=== PATIENT | male | born 1990 | race Hispanic/Latino ===

== ENCOUNTER 2016-10-21 15:25 | Emergency (ER) | payer OTHER ==
[~2016-10-21] VITALS: Ht 167.6 cm; Wt 77.3 kg
[~2016-10-21 15:25] MED LIST: BENZ1TAB7 PO; DIVA500T6 PO; HYDR50CA PO; LORA1TAB PO; RISP1TAB3 PO; [UNRECOGNIZED DRUG - OTHER] IM
[2016-10-21 15:28] VITALS: BP 112/76; PULSE 104; RESP 16; O2SAT 98
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
[2016-10-21] MEDS ORDERED: TdaP Vaccine 0.5 mL Inj IM ONE (15:45)
--- NOTE | 2016-10-21 16:26 | DRSVH ---
PROCEDURE: X-RAY LEFT ANKLE, MINIMUM THREE VIEWS ([id number]) INDICATIONS: trauma TECHNIQUE: 3 views of the ankle were acquired. COMPARISON: None. FINDINGS: Bones: No fractures or dislocations. Ankle mortise is normally aligned. No suspicious bony lesions . Soft tissues: No tibiotalar joint effusion. Achilles tendon appears normal. IMPRESSION: No fracture. No osseous lesion. If there are persistent symptoms or clinical suspicion f or pathology, then repeat radiographs or advanced imaging (CT, MRI or bone scan) should be considered for further evaluation. Dictated by: Maria Luisa Almazan MD, PhD on 10/21/2016 at 16:24 Approved by: Maria Luisa Almazan MD, PhD on 10/21/2016 at 16:25
--- NOTE | 2016-10-21 16:27 | DRSVH ---
PROCEDURE: X-RAY CHEST, TWO VIEWS ([id number]) INDICATIONS: trauma TECHNIQUE: 2 views of the chest were acquired. COMPARISON: None. FINDINGS: Surgical changes and devices: None. Lungs and pleura: No pleural effusions or pneumothorax. Lungs are clear. Mediastinum: Mediastinal contours are normal. Heart size is normal. Bones and chest wall: No suspicious bony abnormalities. Soft tissues appear unremarkable. IMPRESSION: No acute cardiopulmonary disease process. Dictated by: Maria Luisa Almazan MD, PhD on 10/21/2016 at 16:25 Approved by: Maria Luisa Almazan MD, PhD on 10/21/2016 at 16:26
--- NOTE | 2016-10-21 16:28 | DRSVH ---
PROCEDURE: X-RAY PELVIS, ONE OR TWO VIEWS ([id number]) INDICATIONS: trauma TECHNIQUE: 1 view(s) of the pelvis acquired. COMPARISON: None. FINDINGS: Bones: No fractures or dislocations. No suspicious bony lesions. Soft tissues: Visualized bowel gas pattern is normal. No suspicious soft tissue calcifications. IMPRESSION: No fracture. No osseous lesion. If there are persistent symptoms or clinical suspicion f or pathology, then repeat radiographs or advanced imaging (CT, MRI or bone scan) should be considered for further evaluation. Dictated by: Maria Luisa Almazan MD, PhD on 10/21/2016 at 16:26 Approved by: Maria Luisa Almazan MD, PhD on 10/21/2016 at 16:26
--- NOTE | 2016-10-21 16:29 | DRSVH ---
PROCEDURE: X-RAY LEFT TIBIA/FIBULA, TWO VIEWS ([id number]) INDICATIONS: trauma TECHNIQUE: 2 views of the tibia and fibula were acquired. COMPARISON: None. FINDINGS: Bones: No fractures or dislocations. No suspicious bony lesions. Soft tissues: No suspicious soft tissue calcifications or masses. IMPRESSION: No fracture. No osseous lesion. If there are persistent symptoms or clinical suspicion f or pathology, then repeat radiographs or advanced imaging (CT, MRI or bone scan) should be considered for further evaluation. Dictated by: Maria Luisa Almazan MD, PhD on 10/21/2016 at 16:27 Approved by: Maria Luisa Almazan MD, PhD on 10/21/2016 at 16:27
--- NOTE | 2016-10-21 16:30 | DRSVH ---
PROCEDURE: X-RAY LEFT FOOT COMPLETE, MINIMUM THREE VIEWS ([id number]) INDICATIONS: trauma TECHNIQUE: 3 views of the foot were acquired. COMPARISON: None. FINDINGS: Bones: No fractures or dislocations. No suspicious bony lesions. Soft tissues: No tibiotalar joint effusion. Achilles tendon appears normal. IMPRESSION: No fracture. No osseous lesion. If there are persistent symptoms or clinical suspicion f or pathology, then repeat radiographs or advanced imaging (CT, MRI or bone scan) should be considered for further evaluation. Dictated by: Maria Luisa Almazan MD, PhD on 10/21/2016 at 16:27 Approved by: Maria Luisa Almazan MD, PhD on 10/21/2016 at 16:28
[2016-10-21] MEDS ORDERED: HYDR-4003 PO (16:58)
[2016-10-21 17:47] VITALS: BP 109/76; PULSE 96; RESP 16; O2SAT 98
== END 2016-10-21 17:49 | disposition home or self-care (01) ==
LOC: SED 15:25
DX: S80.812A Abrasion, left lower leg, initial encounter (principal); M79.662 Pain in left lower leg; M54.5 Low back pain; V86.59XA Driver of other special all-terrain or other off-road motor vehicle injured in nontraffic accident, initial encounter; Y93.89 Activity, other specified; Y92.89 Other specified places as the place of occurrence of the external cause; Y99.8 Other external cause status; Z87.891 Personal history of nicotine dependence; Z88.8 Allergy status to other drugs, medicaments and biological substances; Z23 Encounter for immunization

== ENCOUNTER 2016-12-23 22:05 | Inpatient (IN) | payer MEDICAID, OTHER ==
[~2016-12-23] VITALS: Ht 165.1 cm; Wt 68.2 kg
[~2016-12-23 22:05] MED LIST changes: +HYDR-4003 PO
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
[2016-12-23 22:21] VITALS: BP 121/79; PULSE 110; RESP 16; O2SAT 98
[2016-12-24] MEDS ORDERED: LORazepam 2 mg Tablet PO ONE (03:30)
[2016-12-24] MEDS ORDERED: risperiDONE 1 mg Tablet PO ONE (03:30)
[2016-12-24 03:42] VITALS: BP 118/76; PULSE 95; RESP 16; O2SAT 97
[2016-12-24 06:30] VITALS: BP 128/68; PULSE 90; RESP 20; O2SAT 97
[2016-12-24 07:41] LABS: BASOPHILS % (AUTO) 0.4 % (0-3); EOSINOPHILS % (AUTO) 1.6 % (0-5); MONOCYTES % (AUTO) 9.4 % (4-12); Mean Corpuscular Hemoglobin 31.4 pg (27.0-35.0); Mean Corpuscular Volume 91.9 fL (81-100); NEUTROPHILS % (AUTO) 56.2 % (40-74); Platelet Count 203 bil/L (150-400)
[2016-12-24 12:34] VITALS: BP 121/79; PULSE 91; RESP 16; O2SAT 97
[2016-12-24 19:30] VITALS: BP 101/65; PULSE 88; RESP 20; O2SAT 100
[2016-12-24 20:22] VITALS: BP 101/65; PULSE 88; RESP 20; O2SAT 100
[2016-12-24 21:05] VITALS: BP 120/80; PULSE 98; RESP 16
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
[2016-12-24] MEDS ORDERED: Magnesium Hydroxide 10 mL Oral Concentration PO PRN (22:45)
[2016-12-24] MEDS ORDERED: Benzocaine-Menthol Lozenge 2/Pkg PO PRN (22:45)
[2016-12-24] MEDS ORDERED: Alum-Mag Hydrox-Simeth 30 mL Suspension PO PRN (22:45)
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
--- NOTE | 2016-12-25 02:24 | NUR ---
Admit/NOC OBS [id number] Pt arrived from ED at 2030. Signed paperwork and oriented to unit. Pt out on unit some throughout evening. Pt unable to follow conversation or activity for any length of time. Pt hyperaware of others and any movement, including during checks. Broken sleep after 130. Observed Q15 as ordered.
--- NOTE | 2016-12-25 07:02 | NUR ---
Nursing Note Alternative Medicine Practitioner 11pm to 7am Pt in bed at start of shift, appears to have slept through the night with restless sleep. Woke up at 0500, appeared restless and was seen pacing. Offered a prn and declined. Pt is disheveled, and seclusive to self. Monitored pt. with q 15 minute face checks for safety, location and accountability.
[2016-12-25 15:27] VITALS: BP 123/72; PULSE 109; RESP 17
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
--- NOTE | 2016-12-25 18:01 | NUR ---
Observations [id number] Pt awake in dining room socializing with peers upon start of shift. Pt observed talking amongst himself at times, restless, moving items on the unit. He attended breakfast, eating 100% and then slept most of the day. Pt woke prior to dinner, requesting a snack. He attended dinner eating 100%. Pt engaged with peers in dining area in the evening. He was observed every 15 minutes of shift as directed.
--- NOTE | 2016-12-25 21:50 | NUR ---
Nurses Note Evening Patient has remained in behavioral control,has been social with peers. His thoughts have been reality based although superficial. He accepted Depakote. His hygiene remains poor. Patient will be monitored on q 15min.checks for safety and support. Addendum: 12/25/16 at 2156 by BARBARA WAGONER RN Amended: Links added.
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
--- NOTE | 2016-12-26 04:21 | NUR ---
Nursing, NOC Patient walked to nurse's station @ , requesting juice, which was given. On the return to his room, he was observed airboxing and talking to himself. Approached nurse's station again about an hour later w/ request for snacks/juice. Reminded patient of designated snack/drink times as posted on the unit fridge. Patient appeared anxious at this time, declined offer of PRN Ativan, states "no, I dont want that, I have court in the morning and Ativan usually knocks me out for 12 hours straight." and "I have been doing push-ups in my room to tire out." Returned to room and fell asleep. Slept well thru the rest of the NOC. Q15 min safety/room checks thru NOC.
[2016-12-26 11:24] VITALS: BP 137/77; PULSE 85; RESP 19
--- NOTE | 2016-12-26 14:53 | NUR ---
Nursing Days Pt slept this morning until awoken to go to court. He did get up and present to court. His dress and appearance are disheveled with poor grooming. He isolates to his room the majority of the shift but he came out for meals and played Jenga with a male peer after lunch. He is taking medication as prescribed. No behavioral outbursts. Continue to monitor and support on the unit as needed.
--- NOTE | 2016-12-26 16:20 | NUR ---
[facility] Day Shift Pt maintained behavioral control throughout the shift. Pt affect appears mostly flat, somewhat brighter when engaged with peers. Pt spends most of the shift resting/sleeping in his room. Pt is appropriate with staff and peers when active on the unit. Pt engages in unit activities with peers in the AM. Pt did not attend breakfast. Pt attended lunch and ate approx 100% of meal.
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
--- NOTE | 2016-12-26 17:46 | NUR ---
home health care case manager/Counselor: S/O: Patient only slept 5.75 hours last night per staff. Patient denies S/I and H/I. He denies auditory and visual hallucinations. Depression is 4/10 and anxiety is 3/10 A: Patient is cooperative, restricted affect, suspicious, paranoid, guarded, limited insight, poor judgment. P: Follow care plan, coordinate with out-patient providers.
--- NOTE | 2016-12-27 05:53 | NUR ---
nursing, nights, 11-7 s- no i don't want anything. o- has appeared to sleep after 0130 to 0230 and after 5. assessed q 15 minutes. a- restless, inadequate sleep, no apparent distress. p- monitor behavior/emotional state, quality, times and amount of sleep, use and effect of medication. jenni
[2016-12-27 09:15] VITALS: BP 122/76; PULSE 89; RESP 16
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
--- NOTE | 2016-12-27 14:30 | NUR ---
Nursing Days Pt briefly out of his room this morning for breakfast and meds. The rest of the morning he exhibited avoidant behavior lying in his room wrapped in a blanket resting opening his eyes when being checked on by staff. He did not participate in morning community meeting. He did come out for lunch and afterward he watched part of a movie. He still appeared tired at this time heavily yawning. No behavior outburst. Polite upon interaction though minimally responsive to questions by staff. Disheveled appearance with poor grooming. No apparent distress or complaints made this shift. Continue to monitor mood, behavior and activity on the unit.
--- NOTE | 2016-12-27 18:10 | NUR ---
Observations [id number] Pt isolated to room much of the morning, sleeping. Pt attended lunch and dinner, eating 100%. Pt appears internally preoccupied and aloof. He spent time in the evening talking with peers and working on a puzzle. Pt also requested to listen to music as well. Pt did not attend group. He was observed every 15 minutes of shift as directed.
--- NOTE | 2016-12-27 19:02 | NUR ---
manager transport/Counselor: S/O: Patient slept 3.25 hours last night per staff. Patient denies S/I and H/I. He denies auditory and visual hallucinations. Depression is 4/10 and anxiety is 3/10. A: Patient is cooperative, restricted affect, dysthymic, guarded, suspicious, paranoid, limited insight, limited judgment. P: Follow care plan, coordinate with out-patient providers.
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
[2016-12-27] MEDS: LORazepam 1 mg Tablet PO PRN (21:07)
[2016-12-27] MEDS: risperiDONE 2 mg Tablet PO PRN (21:08)
--- NOTE | 2016-12-28 05:26 | NUR ---
nursing, nights, 11-7 s/o- has appeared to sleep after 0045 during q 15 minute assessments. a- no apparent distress. p- monitor behavior/emotional state, quality, times and amount of sleep, use and effect of medication. jenni
[2016-12-28 11:28] VITALS: BP 122/72; PULSE 90; RESP 16
--- NOTE | 2016-12-28 13:02 | NUR ---
Nursing Dayshift: S: "Do you think I will be here for the full 14 days or can I get out early?" O: Explained to patient it would depend on his progress on the unit. Has been in his room much of the shift. Out in the dining room for late meals after peers have finished. Approachable. Denies anxiety, harmful thoughts, and hallucinations. Depression "just because I'm in here. I could be home or at the beach." A: Isolative. Pleasant on approach. P: CPOC. Monitor mood and behavior. Encourage out of room activities.
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
--- NOTE | 2016-12-28 23:36 | NUR ---
Observations 1900 to 0700 Pt attended and participated in wrap up group. Pt ate a snack. Pt showered and watched a movie during free times. Pt appears internally preoccupied. Pt is friendly with staff and peers. Pt is moderately gleerful and displaying odd behavior. I want taco barr. Okay pizza hut I dont sleep at night. I dont like to. Pt is currently resting in bed. Staff completed 15 min close observations as ordered.
--- NOTE | 2016-12-29 06:11 | NUR ---
security shift manager [id number] Pt participated in wrap up group with peers and behaved appropriately. Pt did not have any HS meds and refused PRN when he appeared anxious. Pt in bed restless this shift tossing and turning without s/sx of distress noted. Slept 2.25hrs. Continue to monitor for mood changes, emotional wellbeing, and q15min checks for safety. Care continues.
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
[2016-12-29 15:20] VITALS: BP 126/86; PULSE 95; RESP 18
--- NOTE | 2016-12-29 18:10 | NUR ---
Observations 0700 - 1900 Pt affect and mood was friendly, preoccupied, paranoid and has limited insight. Pt was social with staff and peers. Pt was pleasant, polite and cooperative when approached. Pt maintained behavior throughout the shift. Pt speech and eye contact was ok. Pt ate snack. Pt attended meals in D.R. and ate 100% of his meals. Pt ate snack. Pt visited with family and it appeared to go well. Pt played ping pong with peers and seemed to enjoy this. Pt watched baseball game on TV. Pt was observed laughing to himself and responding to internal stimuli. Pt was observed every 15 minutes through the shift as ordered.
--- NOTE | 2016-12-30 06:27 | NUR ---
[id number] Nursing Note Sleep=6.75+ hrs sleep. S: "I am having problems-I don't know what it is called, not urination". "My mom called it #1 and #2". O: Patient visible on unit but not seen to be interacting much with peers. Polite when interacting with staff, cooperative. A: Bright, insight is poor, thoughts are disorganized. P: Monitor for safety and response to treatment. Follow plan of care.
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
--- NOTE | 2016-12-30 19:48 | NUR ---
[id number]. nurs. S/O: "Can I play ping pong " Pt out on unit around peers while watching TV but not actively seeking interaction , pt asking to get needs met with quiet pleasant manner, bright to neutral affect, enjoyed playing ping pong by self. Pt was able to not engage with a peer who was posturing in a provoking manner and avoided other inappropriate and conflictual situations. Mood even. Taking meds as prescribed. Feels that he is ready to go home. No overt response to internal stim noted. No c/o px s/es from meds. P:CNCP
--- NOTE | 2016-12-31 05:57 | NUR ---
bobbin stripper [id number] Pt participated in wrap up group and did not have any behavioral issues or outburst. Pt continues to sit quietly alone watching television and rarely interacting with peers. Pt has been sleeping on and off throughout the night with longest uninterrupted sleep stretch of 1 hr 30mins. Pt slept4 hrs broken. Continue to monitor for mood changes, emotional wellbeing, and q15min checks for safety. Care continues. Addendum: 12/31/16 at 0603 by OBED CHOU RN bobbin stripper [id number]
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
--- NOTE | 2016-12-31 15:01 | NUR ---
Nursing 7a-3p Pt has remained pleasant, cooperative and social on the unit. Taking medication as prescribed. Out for meals. Visited with his mother. No complaints.
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
--- NOTE | 2016-12-31 22:33 | NUR ---
NURSING NOTE [id number] Mood: "okay" Affect: pleasant, cooperative, joking appropriately w/this selling underwriter Behavior: visible on the unit, social w/peers, watched a movie, attending all group activities. Thought processes: pt. denies any disturbed thought content. Denies SI/HI/AH/VH/depression/anxiety.
--- NOTE | 2017-01-01 06:08 | NUR ---
Nursing Note Typer 11pm to 7am Pt asleep at start of shift and remained asleep the remainder of the shift. No issues observed or reported. Monitored pt. with q 15 minute face checks for safety location and accountability
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
--- NOTE | 2017-01-01 15:29 | NUR ---
Nursing 7a-3p Pt continuing to show improvement in thought and behavior. He remains pleasant and cooperative with care. He met with the doctor. Taking medication as prescribed. No expressed concerns or behavior problems. Participating in unit activities. Easily engaged upon approach.
--- NOTE | 2017-01-01 16:59 | NUR ---
Observations [id number] Pt more involved with unit activities today, polite with staff and peers. Observed to be more communicative, asking patients and staff their names. Pt good with ADLs, attended all meals eating 100%. Pt was observed every 15 minutes of shift as directed.
--- NOTE | 2017-01-01 21:42 | NUR ---
NURSING NOTE [id number] Pt. continues to be calm, pleasant, cooperative. Social off and on w/peers and participating in unit activities. Bright affect. Denies any disturbed thought content. Reports he feels ready for discharge. Did not express any need for PRN medications this evening.
--- NOTE | 2017-01-02 04:18 | NUR ---
behavior: pt. restless after 10, wanting to watch tv, walking in halls, pt. asked for phone, pt. denied wanting any sleeping meds, offered twice to him, pt. eventually fell asleep at 0100.
--- NOTE | 2017-01-02 06:18 | NUR ---
Observations 1900 to 0700 Pt was watching TV when my shift started. Pt was in and out of his room numerous times during the evening. Pt was labile, anxious and scattered. Pt was polite and cooperative when approached. Pt ate snack before bed. Pt had trouble falling asleep and was up in his room going through papers, clothes and pacing around room. Pt first appeared asleep at 0100 and was observed every 15 minutes through the night as ordered.
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
[2017-01-02 16:22] VITALS: BP 126/69; PULSE 87; RESP 15
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
--- NOTE | 2017-01-02 18:24 | NUR ---
[id number], nurs. S: "No they are not a problem. (AHs)" O: Pt reports that he has no SI, no anxiety ,depression 12/10, and that he is not having intrusive AHs. Pt out on unit participating in grp activities. Pt has quiet manner understands plan for change of meds to abilify and long acting injection. Pt had first dose of abilify 15 mg today. Addendum: 01/02/17 at 1839 by HIEU OROZCO RN Pt visiting with his mother joselito valentino and mo appears supportive and pt clearly enjoyed visiting.
[2017-01-02] MEDS: risperiDONE 2 mg Tablet PO PRN (20:59)
--- NOTE | 2017-01-03 05:18 | NUR ---
nursing, nights, 11-7 s/o- has appeared to sleep after 2315 during q 15 minute assessments. a- no apparent distress. p- monitor behavior/emotional state, quality, times and amount of sleep, use and effect of medication. jenni
[2017-01-03 10:00] VITALS: BP 132/90; PULSE 88; RESP 16
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
--- NOTE | 2017-01-03 17:33 | NUR ---
[facility] Day Shift Pt maintained behavioral control throughout the shift. Pt affect appears mostly euthymic, occasionally flat. Pt spends most of the AM sleeping/resting in his room, though becomes more active earlier in this shift than noted on previous shifts. Pt is appropriate with staff and peers when active on the unit, but is not overly social. Pt occasionally observed engaging in bizarre physical activity when active on the unit, but does not appear aggressive or unsafe. Pt attended group activities throughout the shift and participated actively. Pt ate approx 30% breakfast and 100% of lunch and dinner.
--- NOTE | 2017-01-03 18:23 | NUR ---
[id number]. nurs S/O: Pt denying having any current voices, stated that he was not having adverse s/es from abilify. Pharmacy stating abilify maintena not available to time of report. Pt playing ping pong with peer and while out on unit superficially interactive or reserved . Pt writing in the air around his body and listening to responses from his action. Pt appeared to be trying to make appropriate responses and guarded . P:VIJAY
--- NOTE | 2017-01-03 21:51 | NUR ---
Sharri PT has been out in dayroom most of the evening. PT is somewhat interactive with other clients, but is reserved. Pt was on the phone for about 20 minutes. Unsure of who PT was talking to but conversation did escalate a bit, but then pt hung up the phone. PT requested ambien for sleep and was given 10mg. PT stated that he was leaving tomorrow and going "home." Pt stated he was excited about this. Denies any SI/HI. Speech is fluent and appropriate at this time. PT is going to court tomorrow for LRO, then will go home with his mother.
[2017-01-04] MEDS: LORazepam 1 mg Tablet PO PRN (01:26)
--- NOTE | 2017-01-04 04:23 | NUR ---
NOC PT has slept very little this chelsy. Last effort was when ativan was given per his request. PT layed in bed for a bit after, but was still unable to sleep. PT states that he is anxious about court tomorow. Will CTM anxiety level and address when indicated. PT will likely d/c today after court if all goes well and return to the home of his mother who is an excellent support for pt.
[2017-01-04] MEDS ORDERED: ARIPiprazole ER 400 mg Inj IM ONE (11:31)
[2017-01-04] MEDS ORDERED: ARIP400S2 IM ×2 (11:36→11:55)
[2017-01-04] MEDS ORDERED: ARIP5TAB5 PO ×2 (11:38→11:55)
--- NOTE | 2017-01-04 11:40 | PCM.DIMED ---
Discharge Instructions Date of Service Jan 04, 2017 Dates of Hospitalization Dec 24, 2016 at 18:12 Discharge Diagnosis Discharge Diagnosis [place] I. 1. Schizophrenia, chronic paranoid type. 2. History of polysubstance abuse, in remission. [place] II. None. [place] III. None acute. [place] IV. Psychosocial stressors are moderate with poor coping skills, limited social support, medication nonadherence. [place] V. Global Assessment of Functioning 40 Medication Instructions Additional med instructions I Strongly encouraged patient to follow up with outpatient care: 1-Recommended patient takes medication as prescribed and not alter this unless under the direct care of a provider. 2-Recommend client refrain from recreational drugs and alcohol while taking psychiatric medications. 3-Recommend patient attempt to find a therapist or group to deal with impulse control and interpersonal relationship conflicts Diet Discharge Diet: No restrictions Activity Discharge Activity: No restrictions Call your provider Call your provider for: Fever or Chills Patient Instructions Patient Instructions Patient scheduled with follow-up medication management and therapy through [facility] please see bilingual case manager Leandra's discharge information for specifics Follow-up with PCP in: 2 weeks Pepito Elaine MD Jan 04, 2017 11:40
--- NOTE | 2017-01-04 11:46 | NUR ---
Skiing Instructor The patient denies SI at this time. His outside provider was notified of his discharge today and appointments were set up. He will be working with [facility] PCP and CM.
--- NOTE | 2017-01-04 14:42 | NUR ---
Nursing Discharge Note: Patient cooperative with discharge process. Acknowledges understanding of d/c instructions and has a copy with them upon leaving unit at 1230. Belongings accounted for and with patient. Prescriptions faxed to patients pharmacy at [facility]. Patient denies harmful thoughts and hallucinations at this time. Patient cooperative with court process. Received a 90 LRO with discharge today. Patient verbalized being "happy".
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
== END 2017-01-04 12:30 | disposition home or self-care (01) | DRG 885 ==
LOC: SED 22:05 → MHC 12-24 18:12
PROVIDERS: ADMIT Psychiatry & Neurology Psychiatry; ATTEND Psychiatry & Neurology Psychiatry
DX: F20.0 Paranoid schizophrenia (principal); R45.850 Homicidal ideations; F12.20 Cannabis dependence, uncomplicated; F29 Unspecified psychosis not due to a substance or known physiological condition; F19.21 Other psychoactive substance dependence, in remission; Z91.19 Patient's noncompliance with other medical treatment and regimen; Z87.891 Personal history of nicotine dependence

== ENCOUNTER 2017-02-06 | Emergency (ER) | payer MEDICAID, OTHER ==
[~2017-02-06] VITALS: Ht 172.7 cm; Wt 68.2 kg
[~2017-02-06] MED LIST changes: +ARIP400S2 IM; +ARIP5TAB5 PO; -BENZ1TAB7 PO; -DIVA500T6 PO; -HYDR-4003 PO; -HYDR50CA PO; -LORA1TAB PO; -RISP1TAB3 PO; -[UNRECOGNIZED DRUG - OTHER] IM
[2017-02-06 00:04] VITALS: BP 130/85; PULSE 93; RESP 16; O2SAT 97
--- NOTE | 2017-02-06 02:34 | ED.REPORT ---
HPI-Psychiatric Illness Date of Service Feb 06, 2017 ED Provider: Dieudonne Quintana MD The pt is a 26 y/o male with a hx of schizophrenia who presents to the ED voluntarily via [employer] with his mother due to insomnia for a few days. However, at the moment, he states his mother brought him here but does not give a reason for the visit. He has not been compliant with his medication. He last took Abilify a week ago. He denies difficulty sleeping, suicidal ideation,homicidal ideation, hallucinations, and would like to be discharged. Nursing Notes Stated Complaint: MENTAL EVAL Chief Complaint: Psychiatric Complaint Nursing Notes Reviewed: Yes Allergies: Coded Allergies: haloperidol (Verified Adverse Reaction, Unknown, neck pain, 12/23/16) Neck pain Scheduled Aripiprazole (Abilify Maintena Inj) 400 Mg Suser.vial 400 MG IM qmonth Aripiprazole (Abilify) 5 Mg Tablet 5 MG PO DAILY Scheduled PRN Trazodone (Trazodone) 50 Mg Tablet 50 MG PO HS PRN PRN Insomnia General Time Seen by MD: 01:59 Chief Complaint Other (insomnia) Hx Obtained From: Patient Arrived By: Police Onset Occurred: 3 days ago Symptom Duration: Since onset Severity: Current: No pain currently Severity: Maximum: No pain Recent Healthcare: Recent doctor visit Risk-Psychiatric Illness Suicide Risk Stratification RF Statements: Risk factors reviewed Past Medical History Past Medical History Per patient: schizophrenia Per discharge summary from psychiatric hospitalization last year: AXIS I 1. Schizophrenia, paranoid type. 2. Polysubstance abuse. 3. Cannabis dependence. AXIS II Deferred. AXIS III None. AXIS IV Stressors are noted for disturbance of coping, chronic mental illness, noncompliance with medications, substance abuse. AXIS V Global Assessment of Functioning of current 30. Past Surgical History None reported Family History noncontributory Smoking History Former Smoker Social History Alcohol Use: "Social" Drug Use: Cocaine, THC Other Social History: Lives with parents, Local resident Ambulatory Status Independent Review of Systems Reported Insomnia in triage but denies in the room. Psychiatric: Denies: Hallucinations, auditory, Hallucinations, visual, Homicidal ideation, Suicidal ideation Complete sys rev & neg: except as marked. Physical Exam Initial Vital Signs Vital Signs (First) Date Time Temp Pulse Resp B/P Pulse Ox O2 Delivery O2 Flow Rate FiO2 02/06/17 00:04 36.9 93 16 130/85 97 Room Air Initial VS: Reviewed, Vital signs normal Head / Eyes: Atraumatic, Normocephalic Neck: Supple, Non-tender, Full range of motion Respiratory: No respiratory distress Cardiovascular: Intact distal pulses Abdomen / GI: No guarding, No distention Extremities: Vascular intact, Neuro intact, No swelling, No tenderness Skin: Warm, Dry, No cyanosis General/Constitutional: Awake, Alert, No acute distress Neurologic: Oriented X3, Speech NL, No motor deficits, No sensory deficits Psychiatric: Affect NL, Mood NL, Not suicidal, Not homicidal, No hallucinations , Judgment/insight NL, Thought content NL Re-Eval/Medical Decision Med Decision/Clinical Course 26-year-old male with schizophrenia presents with inability to sleep. He is not a good historian and requested that I not talk to his mom. He denies any suicidal or homicidal ideation, his thought processes seem intact, and he does not admit to any hallucinations. He is on injectable antipsychotic medication and is not due for a dose for another 3 weeks. He had been taking trazodone for sleep but this has run out and he requests a refill. He was given trazodone 50 mg #15. He is being discharged home with his mom whom he called for a ride. Source of Hx: Old records Re-Evaluation/Progress : Time of Eval: 02:45 Re-Evaluation/Progress Note: Rechecked pt. Discussed diagnosis and plan to discharge. Pt understands and agrees with the plan. F/U instruction and RTER warning given. All questions addressed. Counseled Regarding: Diagnosis, Need for follow-up, When/why to return to ED Discharge & Departure Impression: Primary Impression: Schizophrenia Schizophrenia type: unspecified Qualified Code: F20.9 - Schizophrenia, unspecified Additional Impression: Insomnia Insomnia type: unspecified Qualified Code: G47.00 - Insomnia, unspecified )( Condition at Discharge: No danger to self, No danger to others, No suicidal ideation, No homicidal ideation Disposition: Home Discharge Condition All VS Reviewed: Yes Condition: No Change Patient Instructions: Trazodone (By mouth) Additional Instructions: I have refilled your trazodone to help you sleep. Follow-up with your regular provider if you have further problems. Return to the emergency room if needed. Referrals: [facility] (PCP) Scribe Attestation Portions of this note were transcribed by Hugo Gonzalez. I,, personally performed the history,physical exam and medical decision-making;I reviewed and confirmed the accuracy of the information in the transcribed note. Signed by Clinton Tapia. 02/06/17 copies to: [facility] Dieudonne Quintana MD Feb 06, 2017 02:34 Hugo Gonzalez Feb 06, 2017 02:42
[2017-02-06] MEDS ORDERED: TRAZ-115 PO (02:50)
[2017-02-06 03:13] VITALS: BP 138/84; PULSE 88; RESP 16
== END 2017-02-06 02:56 | disposition home or self-care (01) ==
LOC: SED
DX: F20.9 Schizophrenia, unspecified (principal); G47.00 Insomnia, unspecified; Z87.891 Personal history of nicotine dependence; Z88.8 Allergy status to other drugs, medicaments and biological substances

== ENCOUNTER 2017-02-25 09:08 | Inpatient (IN) | payer MEDICAID, OTHER ==
[~2017-02-25] VITALS: Ht 167.6 cm; Wt 68.6 kg
[~2017-02-25 09:08] MED LIST changes: +TRAZ-115 PO
[2017-02-25 09:15] VITALS: BP 145/87; PULSE 115; RESP 16; O2SAT 97
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
[2017-02-25 10:21] LABS: BASOPHILS % (AUTO) 0.3 % (0-3); EOSINOPHILS % (AUTO) 0.7 % (0-5); MONOCYTES % (AUTO) 7.4 % (4-12); Mean Corpuscular Hemoglobin 31.4 pg (27.0-35.0); Mean Corpuscular Volume 93.9 fL (81-100); NEUTROPHILS % (AUTO) 82.8 % (40-74); Platelet Count 204 bil/L (150-400)
[2017-02-25 12:50] VITALS: BP 123/78; PULSE 117; RESP 22; O2SAT 98
[2017-02-25] MEDS ORDERED: Alum-Mag Hydrox-Simeth 30 mL Suspension PO PRN (20:15)
[2017-02-25] MEDS ORDERED: Magnesium Hydroxide 10 mL Oral Concentration PO PRN (20:15)
[2017-02-25] MEDS ORDERED: Benzocaine-Menthol Lozenge 2/Pkg PO PRN (20:15)
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
--- NOTE | 2017-02-26 04:37 | NUR ---
Nursing Note Dry Color Mixer 11pm to 7am Pt asleep at start of shift and remained asleep for duration of shift. No issues observed or reported. Monitored pt with q 15 minutes for safety, location and accountability.
[2017-02-26] MEDS ORDERED: ARIPiprazole ER 400 mg Inj IM SCH (11:05)
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
--- NOTE | 2017-02-26 17:00 | NUR ---
Dividend Deposit Voucher Clerk/Counselor S:"I'm doing pretty good." O: Patient denies any SI or HI, no auditory or visual hallucinations. No anxiety or depression. A: Patient was friendly, cooperative, and polite with staff. P: Follow care plan and coordinate with outpatient providers.
--- NOTE | 2017-02-26 17:07 | NUR ---
Obs Dayshift Pt has been calm, cooperative, polite. Spent most of the shift out in the milieu or in the group room, watching TV, listening to music, writing, etc. Pt is cooperative w/ paperwork, and talking w/ staff. States that he is doing well, feeling good today, reasonable eye contact. Pt has taken a couple of showers, reasonable w/ requests. Good ADL's, Good meals
--- NOTE | 2017-02-26 18:11 | NUR ---
Nursing Dayshift: S/O: Patient has been out in the public areas of the unit much of the shift. Has spent much of his time this afternoon in the group room watching videos. Denies AH though Sky from [facility] had stopped by and stated he felt the patient was responding to IS. Good appetite at meals. Pleasant on approach. Requested lotion to "cover up my black eye" which he received. A: Keeps to himself. Pleasant. Cooperative. P: CPOC. Monitor mood and behavior.
--- NOTE | 2017-02-27 01:25 | NUR ---
Observations 1900 to 0700 Pt ate a snack. Pt spent free time watching TV. Pt appears internally preoccupied and was observed randomly laughing at times. Pt made bizarre request for band aid for eye. Staff offered cool wash cloth. Pt began swearing at staff. Pt otherwise presented polite to staff and apologized to staff soon after. Staff completed 15 min close observations as ordered.
--- NOTE | 2017-02-27 05:29 | NUR ---
Nursing Noc "Fk You, you SOB. , I want a bandaid" Pt appears very internally preoccupied, taking medications with encouragement and explanation. Behavior very unpredictable, tangential speech, verbally hostile at times. Very poor sleep. Continuing to monitor mood, behavior and emotional state. Q15 minute safety checks. CP
[2017-02-27 09:54] VITALS: BP 121/72; PULSE 99; RESP 16
--- NOTE | 2017-02-27 13:05 | PROG NOTE ---
[address] [address] PROGRESS NOTE PATIENT: CHANI LAN : 1990 MR#: [id number] ADMIT: 02/25/2017 JOB ID: [id number] DATE: 02/27/2017 CHIEF COMPLAINT: "How are you doing, doc?" This per patient report. HISTORY OF PRESENT ILLNESS: As stated above, the patient was cooperative, polite with myself out in the Day Area. He reportedly did show significant agitation and aggression last evening with nursing staff and was demanding an eye patch. Per staff report, the patient has shown other episodes of significant positive interaction and has been very polite. The patient states that he has no evidence of current concerns and was agreeable to administer all medications including dose administration of Abilify 10 mg q.a.m. this morning, trazodone 50 mg at bedtime. Clarification of his Trileptal as currently being dispensed is being pursued by nursing staff. OBJECTIVE: On mental status exam, he was bright, cooperative, interactive. He was apologetic about his behavior last evening to myself. He was encouraged to discuss such with nursing staff later on tonight. His speech was of normal tone, frequency, and volume. His mood was neutral. Affect was congruent. His thought process showed no evidence of random flight of ideas, loose or disconnected thinking. Thought content: He denied any evidence of current suicidal, homicidal ideation. No evidence of active hallucinations, delusions. He was alert, oriented to time, and place. Attention and concentration intact. Memory intact in the short term, long-term, and recent. Insight and judgment are fair. PHYSICAL EXAMINATION: Vital signs are current: Temperature is 36.5, pulse 99, respirations 16, BP 121/72. MEDICATION REVIEW: Includes Abilify 10 mg q.a.m., Abilify Maintena 400 mg to be dispensed today, trazodone 50 mg at bedtime, and p.r.n. doses of Vistaril given last evening at 8 p.m. ASSESSMENT: [place] I: 1. Schizophrenia, paranoid type.u 2. Polysubstance use disorder, in remission. [place] II: Deferred. [place] III: None. [place] IV: Stressors are noted for chronic mental health issues, concern of noncompliance. [place] V: Global Assessment of Functioning of current 35. PLAN: 1. Recommendations for continuation of all medications noted. 2. Clarification of Trileptal to be verified through [facility]. 3. Probable release on Saturday.
--- NOTE | 2017-02-27 13:56 | NUR ---
NURSING NOTE [id number] Mood: "good, I was able to adjust the light switch in my room and move my mood up and down, so I'm good now" *smiles* Affect: pleasant, smiling, cooperative Behavior: pt. has been visible in the DR for much of the shift, watching TV and lounging. Pt. took a shower. Pt. is med compliant. Thought processes: denies AH/VH/SI/depression. Makes some odd requests such as asking if he could donate blood "in case you guys need it later" and has some disjointed speech but mostly has been logical and coherent.
--- NOTE | 2017-02-27 17:29 | NUR ---
Organizational Effectiveness Director/Counselor S:"I'm doing alright today" O: Patient slept for 2 hours per staff report. Patient denies any SI or HI, no auditory or visual hallucinations. Anxiety as a 2 and depression as a 3. A: Patient was friendly, cooperative, and polite with staff. P: Follow care plan and coordinate with outpatient providers.
--- NOTE | 2017-02-27 18:02 | NUR ---
[facility] Day Shift Pt maintained behavioral control throughout the shift. Pt affect appears mostly flat, somewhat brighter when interacting with staff and peers. Pt spends most of the shift resting in his room or sitting quietly/watching TV in the dining room. Pt is appropriate with staff and peers when active on the unit, but is not overly social. Pt passively attends group activities throughout the shift. Pt attended all meals and ate approx 100% of all meals.
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
--- NOTE | 2017-02-28 03:50 | NUR ---
nursing, nights, 11-7 s/o- has appeared to sleep after 2214 during q 15 minute assessments. a- no apparent distress. p- monitor behavior/emotional state, quality, times and amount of sleep, use and effect of medication. jenni
--- NOTE | 2017-02-28 13:48 | PROG NOTE ---
[address] [address] PROGRESS NOTE PATIENT: CHANI LAN : 1990 MR#: [id number] ADMIT: 02/25/2017 JOB ID: [id number] DATE: 02/28/2017 CHIEF COMPLAINT: "I think I'll be able to make it home." This is per patient report. HISTORY OF PRESENT ILLNESS: As stated above, the patient did indicate that he would be willing to walk home tomorrow with the discharge. He reportedly has been cooperative, polite, apologetic of his behaviors that led into the hospitalization and showed significant gains of insight into the need of continued medication management. He did not receive his dose of Abilify Maintena yesterday and I will clarify with nurse for reason for administration delay. OBJECTIVE/MENTAL STATUS EXAMINATION: He was bright, cooperative, interactive. He maintained good eye contact. He indicated that he would be willing to continue with all of his aftercare providers at [facility]. His speech is of normal tone, frequency, and volume. His mood is neutral. Affect was congruent. His thought process showed no evidence of racing thoughts, flight of ideas, loose or disconnected thinking. Thought content: He denied any evidence of current suicidal, homicidal ideation. No evidence of active hallucinations, delusions. No evidence of residual paranoia. He was alert, oriented to time and place. Attention and concentration intact. Insight and judgment are fair. PHYSICAL EXAMINATION: Vital signs are current. Temperature is 36.5, pulse 99, respirations 16, BP 121/72. MEDICATION REVIEW: Includes Abilify 10 mg q.a.m., Abilify Maintena 400 mg monthly; last injection was to be given on the but has not been dispensed, trazodone 50 mg q.h.s. ASSESSMENT: AXIS I: 1. Schizophrenia, paranoid type. 2. Polysubstance use disorder, in remission. AXIS II: Deferred. AXIS III: None. AXIS IV: Stressors are noted for chronic mental health issues, previous history of substance use. AXIS V: Global Assessment of Functioning, current, 40. PLAN: Recommendations to discharge tomorrow with continuation of aftercare through care providers at [facility] and continuation of his LR 90.
--- NOTE | 2017-02-28 16:33 | NUR ---
NURSE NOTE DAY Mood: "I'm fine." Denies anxiety and depression. Affect: Well-modulated. Thought Process/Content: Linear, linked. Denies AH, VH. Denies SI HI. Behavior: Pleasant and appropriate with staff.
[2017-02-28 18:51] VITALS: BP 107/79; PULSE 89; RESP 16
--- NOTE | 2017-02-28 18:53 | NUR ---
Hood Maker/Counselor S:"I have all my appointments written down." O: Patient slept 7 hours per staff. Patient denies S/I and H/I. He also denies auditory or visual hallucinations. Depression is 0/10 and anxiety is 0/10. Patient is scheduled to discharge tomorrow. A: Patient is cooperative, hopeful, bright, fair insight, fair judgment. P: Follow care plan and coordinate with outpatient providers.
--- NOTE | 2017-03-01 05:21 | NUR ---
nursing, nights, 11-7 s/o- has appeared to sleep after 2300. up briefly for water at 0130. assessed q 15 minutes. a- no apparent distress. p- monitor behavior/emotional state, quality, times and amount of sleep, use and effect of medication. jenni
--- NOTE | 2017-03-01 09:52 | PCM.DIMED ---
Discharge Instructions Date of Service Mar 01, 2017 Dates of Hospitalization Feb 25, 2017 at 18:06 Discharge Diagnosis Discharge Diagnosis Schizophrenia, Paranoid Polysubstance Abuse In remission Diet Discharge Diet: No restrictions Activity Discharge Activity: No restrictions Lopez Schulz DO Mar 01, 2017 09:52
[2017-03-01] MEDS ORDERED: ARIP10TA16 PO (09:54)
[2017-03-01] MEDS ORDERED: TRAZ-115 PO (09:54)
[2017-03-01] MEDS ORDERED: ARIP400S2 IM (09:54)
--- NOTE | 2017-03-01 11:30 | NUR ---
DISCHARGE NOTE Pt. discharged at 11:25, w/plan to walk to his mother's home nearby. Pt. denied any safety concerns, affect bright. He was able to repeat back his discharge instructions for follow-up appointments at [facility] and to apple picker his prescriptions at his pharmacy.
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
--- NOTE | 2017-03-01 17:43 | NUR ---
Adjunct Psychology Professor/Counselor S:"I can just walk home from here. I already talked to my mom this morning." O:Patient denies S/I and H/I. He also denies auditory or visual hallucinations. Depression is 0/10 and anxiety is 0/10. Out-patient appointments: Negrito Roque, counselor [facility], 03/04/17 at 1:00pm and CHAY Small, medication monitor [facility], 03/07/17 at 2:00pm. A: Patient is cooperative, hopeful, bright, fair insight, fair judgment. P: Follow care plan and coordinate with outpatient providers.
== END 2017-03-01 11:25 | disposition home or self-care (01) | DRG 885 ==
LOC: SED 09:08 → MHC 18:06
PROVIDERS: ADMIT Psychiatry & Neurology Psychiatry; ATTEND Psychiatry & Neurology Psychiatry
DX: F20.0 Paranoid schizophrenia (principal); G47.00 Insomnia, unspecified; F12.21 Cannabis dependence, in remission; F43.0 Acute stress reaction; Z87.891 Personal history of nicotine dependence; Z91.19 Patient's noncompliance with other medical treatment and regimen